=== PATIENT | female | born 1955 | race Caucasian/White ===

== ENCOUNTER → 2021-06-15 12:32 | Outpatient (CLI) | payer MEDICARE, MEDICAID, SELFPAY ==
--- NOTE | 2021-06-15 | DI.RAD.S_ITS ---
PROCEDURE: FL BARIUM SWALLOW INDICATIONS: Diaphragmatic hernia without obstruction or gangre COMPARISON: None. FINDINGS: Function: There is normal esophageal peristalsis. No elicited gastroesophageal reflux. There is a mild hiatal hernia with an early Schatzki's ring which does not impede transit of a 12.5 mm barium tablet from the esophagus into the stomach. Morphology: Air-contrast images demonstrate normal mucosal morphology. Single contrast views show no esophageal strictures, extrinsic mass effects, or diverticula. Limited images of the stomach demonstrate normal appearance. IMPRESSION: Small hiatal hernia with early Schatzki's ring which is nonobstructive. Dictated by: Kiko Bergeron M.D. on 06/15/2021 at 16:45 Approved by: Kiko Bergeron M.D. on 06/15/2021 at 16:47
== END ==
PROVIDERS: PCP Surgery; Referring Provider Surgery; Visit Provider Surgery
DX: K44.9 Diaphragmatic hernia without obstruction or gangrene (principal)
CPT/HCPCS: 74220